=== PATIENT | female | born 2000 | race Caucasian/White ===

== ENCOUNTER 2024-07-22 07:32 | Inpatient (IN) ==
[2024-07-22] MEDS ORDERED: LIDOCAINE 1% LOCAL 20 ML VIAL INFIL PRN (07:42)
[2024-07-22] MEDS ORDERED: Patient's HEIGHT &/or WEIGHT Needed SCH (08:00)
[2024-07-22] MEDS: LACTATED RINGER'S 1,000 ML IV PRN (08:07)
[2024-07-22 08:19] LABS: Hematocrit (blood only) 33.2 % (37.0-47.0); Hemoglobin 11.5 g/dl (12.0-16.0); Mean Corpuscular Hemoglobin 30.4 pg (25.0-34.0); Mean Corpuscular Hgb Conc 34.6 g/dL (32.0-36.0); Mean Corpuscular Volume 87.8 fL (80.0-100.0); Mean Platelet Volume 10.9 fL (9.4-12.4); Platelet Count 204 K/uL (130-400); RDW Coefficient of Variation 12.8 % (11.5-14.5); RDW Standard Deviation 41.1 fL (36.4-46.3); Red Blood Count 3.78 M/uL (4.20-5.40); White Blood Count 11.44 K/ul (4.8-10.8)
[2024-07-22] MEDS ORDERED: INFLUENZA VACC TS2024-25(6m+)/PF (IIV3) 0.5mL Syr IM ONE (08:43)
[2024-07-22] MEDS: OXYTOCIN 30 UNITS/NSS 30 UNITS/500 ML BAG IV PRN ×2 (09:09→22:45)
--- NOTE | 2024-07-22 09:32 | History & Physical Report ---
Date of Service July 22, 2024 Assessment & Plan (1) Encounter for elective induction of labor: (2) 39 weeks gestation of : Plan admit, iv, labs. fhts categ 1. arom done, start pitocin. epidural when desires. Admission and Anticipated Discharge Date Admission Date: July 22, 2024 History of Present Illness Chief Complaint: planned induction Primary Care Provider: PADMAJA Villareal 24yo at 39+wks ega for planned elective induction. Patient with anxiety and feels would benefit from induction and agreed to such today. No rom, vb. +FM. No ctx. PNC c/b 1. anxiety, on zoloft PNL rhpos, ri, gbs neg OBH: tab x1 GYNH: nl paps, no stds Allergies Allergy/AdvReac Type Severity Reaction Status Date / Time No Known Allergies Allergy Verified 07/22/24 07:47 Home Medications Medication Instructions Recorded Confirmed Type PNV no.[id number] PO 12/30/23 07/21/24 History [ Gummies] sertraline 50 mg tablet 50 mg PO DAILY 02/13/24 07/21/24 History Patient History Medical History (Updated 07/22/24 @ 09:31 by Maru Simpson MD, FACOG) Status post elective Psoriasis Depression Varicella vaccination Surgical History S/P dilatation and curettage S/P wisdom tooth extraction Family History Grandmother (Paternal) Diabetes Denies family history of Ovarian cancer Breast cancer Colorectal cancer Social History Smoking Status: Former smoker Do You Dip or Chew Tobacco: No; Hx Alcohol Use: No Hx Substance Use: No Preferred Language: [place] Citizen Last Trimmer Required: No Beliefs That Will Affect Care: None marital status: Single marital status details: Atif Fischer (26) [phone] Current Living Situation: Significant Other Current Living Situation Comment: lives with fob, dogs, cats-fob changing litter current occupational status: employed current occupation: [employer] Assistive Devices: Glasses Review of Systems as per Subjective / HPI Physical Exam Constitutional: WD/WN, vitals as above Respiratory: normal respiratory effort, lungs clear to auscultation Cardiovascular: Rate/Rhythm: regular rate and regular rhythm Gastrointestinal (Abdomen): soft gravid nt efw 7-8# Musculoskeletal: tr edema nontender calves Neurologic: grossly normal Psychiatric: A+Ox3, euthymic affect Genitourinary: Manual OB Exam: + cervical dilation 2 cm, + cervical effacement 50%, + station -2 and + amniotic fluid (arom) clear OB Exam Monitor Tracing: + external FHT monitor used, + external uterine monitor used (irregular), + category I and + normal FHT variability Results & Data Vital Signs (Past 12 Hours) Vital Signs Temp Pulse Resp BP 07/22/24 08:43 98.2 F 16 07/22/24 07:40 98 H 127/76 Coding Level of Care Code None Diagnoses Encounter for elective induction of labor Z34.90 39 weeks gestation of Z3A.39
--- NOTE | 2024-07-22 15:54 | Labor Progress Brief Note ---
Date of Service July 22, 2024 Subjective feeling pain with ctx. Assessment & Plan (1) Encounter for elective induction of labor: (2) 39 weeks gestation of : Plan good progress in labor. desires epidural. fhts categ 1. Admission and Anticipated Discharge Date Admission Date: July 22, 2024 Physical Exam Constitutional: WD/WN, vitals as above Genitourinary: Manual OB Exam: + cervical dilation 5 cm, + cervical effacement 90% and + station 0 OB Exam Monitor Tracing: + external FHT monitor used, + external uterine monitor used (q2 on pit @12), + category I and + normal FHT variability Results & Data Vital Signs (Past 12 Hours) Vital Signs Temp Pulse Resp BP 07/22/24 14:55 82 07/22/24 14:55 126/80 07/22/24 14:54 18 07/22/24 14:54 99.0 F 18 07/22/24 13:50 16 07/22/24 13:50 16 07/22/24 13:31 98.2 F 07/22/24 13:31 98.2 F 07/22/24 13:31 85 07/22/24 13:31 133/84 07/22/24 12:50 16 07/22/24 12:50 16 07/22/24 12:20 18 07/22/24 12:20 18 07/22/24 11:50 16 07/22/24 11:50 16 07/22/24 11:19 73 07/22/24 11:19 120/58 L 07/22/24 10:46 73 07/22/24 10:46 113/59 L 07/22/24 08:43 98.2 F 16 07/22/24 07:40 98 H 127/76 Coding Level of Care Code None Diagnoses Encounter for elective induction of labor Z34.90 39 weeks gestation of Z3A.39
--- NOTE | 2024-07-22 16:10 | Anesthesiology Consultation ---
Date of Service July 22, 2024 Assessment & Plan (1) Encounter for pre-operative examination: Chart Review Chart Review: Acceptable Risk for Labor Epidural History Height/Weight Height: 5 ft 2 in Weight: 78.834 kg Allergies Allergy/AdvReac Type Severity Reaction Status Date / Time No Known Allergies Allergy Verified 07/22/24 07:47 Medications Home Medications Medication Instructions Recorded Confirmed Last Taken PNV no.[id number] PO 12/30/23 07/21/24 Unknown [ Gummies] sertraline 50 mg tablet 50 mg PO DAILY 02/13/24 07/21/24 Unknown Active Medications Generic Name Dose Route Start Last Admin Trade Name Freq PRN Reason Stop Dose Admin Oxytocin 30 units in 500 mls @ 4 mls/hr 07/22/24 07:42 07/22/24 09:56 Pitocin 30 Units/Nss IV 07/24/24 07:41 0.24 units/hr .Q24H PRN 4 mls/hr Labor Induction/Augmentation Titration Protocol 0.24 UNITS/HR Lactated Ringer's 1,000 mls @ 125 mls/hr 07/22/24 08:00 07/22/24 08:07 Lr IV 07/24/24 07:59 125 mls/hr .Q8H PRN Administration L&D Protocol Protocol Past Medical History Medical History Status post elective Psoriasis Depression Varicella vaccination Past Family History Family History Grandmother (Paternal) Diabetes Denies family history of Ovarian cancer Breast cancer Colorectal cancer Past Surgical History Surgical History S/P dilatation and curettage S/P wisdom tooth extraction Social History Smoking Status: Former smoker Do You Dip or Chew Tobacco: No Hx Alcohol Use: No Hx Substance Use: No substance use type: does not use Physical Exam Vital Signs Last Vital Signs Temp 37.2 C 07/22/24 14:54 Pulse 80 07/22/24 16:03 Resp 18 07/22/24 14:54 BP 126/80 07/22/24 14:55 Pulse Ox 99 07/22/24 16:03 Testing Laboratory Results 07/22/24 07:49
[2024-07-22] MEDS: BUPIVACAINE 0.25% PF 30 ML VIAL ONE (16:24)
[2024-07-22] MEDS: fentaNYL citrate PF 100 MCG/2 ML VIAL ONE (16:24)
[2024-07-22] MEDS: fentANYL 2 MCG/ML BUPIVacaine 0.125%-NSS 100ML BAG ONE (16:25)
[2024-07-22] MEDS ORDERED: LIDOCAINE 2% MPF LOCAL 5 ML VIAL EPI PRN (16:33)
[2024-07-22] MEDS ORDERED: BUPIVACAINE 0.25% PF 30 ML VIAL EPI PRN (16:33)
[2024-07-22] MEDS ORDERED: NALOXONE HCL 1 MG in SODIUM CHLORIDE 0.9% 1,000 ML IV PRN (16:33)
[2024-07-22] MEDS ORDERED: fentaNYL citrate PF 100 MCG/2 ML VIAL EPI PRN (16:33)
[2024-07-22] MEDS ORDERED: ROPIVACAINE 0.5% PF 5 MG/ML 20 ML VIAL EPI PRN (16:33)
[2024-07-22] MEDS ORDERED: ONDANSETRON INJ 2 MG/ML 2 ML VIAL IV PRN (16:33)
[2024-07-22] MEDS ORDERED: SODIUM CHLORIDE 0.9% PF INJ 10 ML VIAL EPI PRN (16:33)
[2024-07-22] MEDS ORDERED: NALOXONE HCL 0.4 MG/1 ML VIAL/CARP IV PRN (16:33)
[2024-07-22] MEDS ORDERED: fentANYL 2 MCG/ML BUPIVacaine 0.125%-NSS 100ML BAG EPI PRN (16:33)
[2024-07-22] MEDS ORDERED: ePHEDrine sulfate 50 MG/ML AMP IV PRN (16:33)
[2024-07-22] MEDS: LIDOCAINE 2%/EPINEPHRINE 1:200,000 20 ML PF ONE (17:17)
[2024-07-22] MEDS: BUPIVACAINE 0.25% PF 30 ML VIAL EPI STA (17:18)
[2024-07-22] MEDS: SODIUM CHLORIDE 0.9% PF INJ 10 ML VIAL ONE (17:18)
[2024-07-22] MEDS: ePHEDrine sulfate 50 MG/ML AMP ONE (17:25)
[2024-07-22] MEDS: LIDOCAINE 2%/EPINEPHRINE 1:200,000 20 ML PF EPI STA (17:26)
[2024-07-22] MEDS: SODIUM CHLORIDE 0.9% PF INJ 10 ML VIAL EPI STA (17:26)
[2024-07-22] MEDS: fentaNYL citrate PF 100 MCG/2 ML VIAL EPI STA (17:26)
--- NOTE | 2024-07-22 22:50 | Delivery Summary ---
Vaginal Delivery Summary Date of Service July 22, 2024 Vaginal Delivery Summary The patient dilated to complete and pushed to deliver a viable female Apgars 7 and 9 via over intact perineum. Moderate shoulder dystocia encountered relieved by Fern maneuvers, suprapubic pressure, gentle downward traction and effective maternal expulsive efforts. Mouth and nose bulb suctioned at perineum. Shoulders and body delivered with ease. Infant was vigorous and crying at . Cord clamped at 30 seconds of life and to maternal abdomen where the cord was then doubly clamped and cut. Placenta delivered spontaneously and intact, three-vessel cord. Hemostasis achieved with dilute pitocin and uterine massage and drainage of the bladder for approximately 400 cc under sterile conditions. Cervix and sulci intact. Small bilateral upper labial separations are hemostatic and not repaired. QBL 34 cc. Mother and baby stable in recovery. [facility] Vaginal Delivery Charge Delivery Type Details:
[2024-07-23] MEDS ORDERED: oxyCODONE/ACETAMINOPHEN 5mg/325mg TAB PO PRN (00:11)
[2024-07-23] MEDS ORDERED: HYDROCORTISONE ACETATE 25 MG SUPP PR PRN (00:11)
[2024-07-23] MEDS ORDERED: OXYTOCIN 30 UNITS/NSS 30 UNITS/500 ML BAG IV PRN (00:11)
[2024-07-23] MEDS ORDERED: BENZOCAINE 20% SPRY 85 APPLN/85 GM CAN EXT PRN (00:11)
[2024-07-23] MEDS: DIPHTHER/TETAN/PERTUS Vaccine (Tdap, Adol/Adult) 0.5mL IM ONE (01:53)
[2024-07-23] MEDS: ACETAMINOPHEN 325 MG TAB PO PRN (05:45)
--- NOTE | 2024-07-23 07:35 | Obstetrical Progress Note ---
Date of Service July 23, 2024 Assessment & Plan (1) Encounter for assessment: Plan: Patient is PPD 1 s/p and doing well - Eating well, voiding well, ambulating well - vitals reviewed and within normal limits - pain well controlled with analgesics - OOB, ambulation, diet progression as tolerated - Blood type: A+, GBS neg, rubella immune - Plan to discharge tonight - After discharge, 6 week follow up with OB Admission and Anticipated Discharge Date Admission Date: July 22, 2024 Supervising Physician Co-Signing Physician Notes Resident Physician Supervision Note: I was present with Dr. Ponce during the history and exam. I discussed the case with the resident and agree with the findings and plan as documented in the note. Any exceptions or clarifications are listed here: pt doing well, eating, voiding, ambulating, nursing. no bleeding issues. no pain issues. abd soft ff 2 down nt, nt calves. ppd#1 s/p , wants to go home even if goes at midnight. breast, rhpos, ri. instructions reviewed. f/u 6wks pp check. Documented By: Maru Simpson MD, FACOG Subjective 24 yo post- day 1 s/p Ambulation: ambulating normally Voiding: no voiding problems Passing Gas:: Yes Diet Tolerance:: regular diet Lochia:: Small Feeding Type:: bottle feeding Current Pain Level:2/10 - 5/10 on ambulation Resting comfortably this AM in NAD. Denies MORRELL, CP, SOB, N/V/D, LE pain/swelling. Physical Exam Physical Exam: General: patient resting comfortably, NAD, non-toxic in appearance, answers questions appropriately. Skin: warm, dry, intact HEENT: NC/AT, anicteric sclera, conjunctiva without injection, moist mucus membranes. Heart: +S1/S2, regular, no m/r/g Lungs: equal air entry bilaterally, no rales/rhonchi/wheezes Abd: +BS, soft, NT/ND, uterine fundus firm at umbilicus Ext: warm, no clubbing/cyanosis or edema, Hung's neg. Neuro: nonfocal, speech intact, no facial droop, moving all extremities. Results & Data Vital Signs (Past 12 Hours) Vital Signs Temp Pulse Pulse Resp BP BP Pulse Ox 07/23/24 05:30 36.6 C 76 18 115/72 97 07/23/24 01:20 36.9 C 77 18 124/69 96 07/23/24 01:10 36.7 C 07/23/24 01:03 74 98 07/23/24 00:58 74 97 07/23/24 00:53 83 98 07/23/24 00:48 78 96 07/23/24 00:43 74 97 07/23/24 00:38 72 97 07/23/24 00:33 77 97 07/23/24 00:28 75 97 07/23/24 00:23 81 98 07/23/24 00:18 84 97 07/23/24 00:13 76 97 07/23/24 00:08 67 98 07/23/24 00:03 65 98 07/22/24 23:58 98 07/22/24 23:58 71 07/22/24 23:53 97 07/22/24 23:53 78 07/22/24 23:48 97 07/22/24 23:48 77 07/22/24 23:43 98 07/22/24 23:43 79 07/22/24 23:38 96 07/22/24 23:38 79 07/22/24 23:33 97 07/22/24 23:33 82 07/22/24 23:28 98 07/22/24 23:28 79 07/22/24 23:23 98 07/22/24 23:23 80 07/22/24 23:18 97 07/22/24 23:18 90 07/22/24 23:13 98 07/22/24 23:13 81 07/22/24 23:08 97 07/22/24 23:08 75 07/22/24 23:03 97 07/22/24 23:03 75 07/22/24 22:58 95 07/22/24 22:58 81 07/22/24 22:56 75 07/22/24 22:56 125/59 L 07/22/24 22:53 98 07/22/24 22:53 86 07/22/24 22:50 93 07/22/24 22:50 85 07/22/24 22:48 99 07/22/24 22:48 82 07/22/24 22:43 99 07/22/24 22:43 79 10/09/24 22:38 99 07/22/24 22:38 84 07/22/24 22:36 93 07/22/24 22:36 110 H 07/22/24 22:33 99 07/22/24 22:33 72 07/22/24 22:28 99 07/22/24 22:28 74 07/22/24 22:25 80 07/22/24 22:25 116/56 L 07/22/24 22:23 99 07/22/24 22:23 78 07/22/24 22:21 92 07/22/24 22:21 102 H 07/22/24 22:18 100 07/22/24 22:18 101 H 07/22/24 22:13 99 07/22/24 22:13 84 07/22/24 22:08 100 07/22/24 22:08 83 07/22/24 22:03 98 07/22/24 22:03 83 07/22/24 21:58 97 07/22/24 21:58 82 07/22/24 21:54 77 07/22/24 21:54 133/65 07/22/24 21:53 98 07/22/24 21:53 80 07/22/24 21:48 98 07/22/24 21:48 79 07/22/24 21:45 36.8 C 07/22/24 21:43 99 07/22/24 21:43 78 07/22/24 21:38 97 07/22/24 21:38 75 07/22/24 21:33 98 07/22/24 21:33 72 07/22/24 21:28 99 07/22/24 21:28 72 07/22/24 21:25 93 H 07/22/24 21:25 123/60 07/22/24 21:23 99 07/22/24 21:23 81 07/22/24 21:18 99 07/22/24 21:18 70 07/22/24 21:13 98 07/22/24 21:13 76 07/22/24 21:08 99 07/22/24 21:08 73 07/22/24 21:03 99 07/22/24 21:03 75 07/22/24 20:58 99 07/22/24 20:58 77 07/22/24 20:55 76 10/09/24 20:55 114/68 07/22/24 20:53 99 07/22/24 20:53 77 07/22/24 20:48 98 07/22/24 20:48 79 07/22/24 20:43 99 07/22/24 20:43 76 07/22/24 20:38 99 07/22/24 20:38 72 07/22/24 20:33 99 07/22/24 20:33 77 07/22/24 20:28 99 07/22/24 20:28 72 07/22/24 20:24 74 07/22/24 20:24 115/66 07/22/24 20:23 99 07/22/24 20:23 77 07/22/24 20:18 99 07/22/24 20:18 76 07/22/24 20:13 99 07/22/24 20:13 74 07/22/24 20:08 98 07/22/24 20:08 76 07/22/24 20:03 98 07/22/24 20:03 73 07/22/24 19:58 99 07/22/24 19:58 71 07/22/24 19:56 72 07/22/24 19:56 110/61 07/22/24 19:53 98 07/22/24 19:53 72 07/22/24 19:48 98 07/22/24 19:48 77 07/22/24 19:43 97 07/22/24 19:43 82 07/22/24 19:38 98 07/22/24 19:38 84 O2 Del Method 07/23/24 05:30 Room Air 07/23/24 01:20 Room Air 07/23/24 01:10 07/23/24 01:03 07/23/24 00:58 07/23/24 00:53 07/23/24 00:48 07/23/24 00:43 07/23/24 00:38 07/23/24 00:33 07/23/24 00:28 07/23/24 00:23 07/23/24 00:18 07/23/24 00:13 07/23/24 00:08 07/23/24 00:03 07/22/24 23:58 07/22/24 23:58 07/22/24 23:53 07/22/24 23:53 07/22/24 23:48 07/22/24 23:48 07/22/24 23:43 07/22/24 23:43 07/22/24 23:38 07/22/24 23:38 07/22/24 23:33 07/22/24 23:33 07/22/24 23:28 07/22/24 23:28 07/22/24 23:23 07/22/24 23:23 07/22/24 23:18 07/22/24 23:18 07/22/24 23:13 07/22/24 23:13 07/22/24 23:08 07/22/24 23:08 07/22/24 23:03 07/22/24 23:03 07/22/24 22:58 07/22/24 22:58 07/22/24 22:56 07/22/24 22:56 07/22/24 22:53 07/22/24 22:53 07/22/24 22:50 07/22/24 22:50 07/22/24 22:48 07/22/24 22:48 07/22/24 22:43 07/22/24 22:43 07/22/24 22:38 07/22/24 22:38 07/22/24 22:36 07/22/24 22:36 07/22/24 22:33 07/22/24 22:33 07/22/24 22:28 07/22/24 22:28 07/22/24 22:25 07/22/24 22:25 07/22/24 22:23 07/22/24 22:23 07/22/24 22:21 07/22/24 22:21 07/22/24 22:18 07/22/24 22:18 07/22/24 22:13 07/22/24 22:13 07/22/24 22:08 07/22/24 22:08 07/22/24 22:03 07/22/24 22:03 07/22/24 21:58 07/22/24 21:58 07/22/24 21:54 07/22/24 21:54 07/22/24 21:53 07/22/24 21:53 07/22/24 21:48 07/22/24 21:48 07/22/24 21:45 07/22/24 21:43 07/22/24 21:43 07/22/24 21:38 07/22/24 21:38 07/22/24 21:33 07/22/24 21:33 07/22/24 21:28 07/22/24 21:28 07/22/24 21:25 07/22/24 21:25 07/22/24 21:23 07/22/24 21:23 07/22/24 21:18 07/22/24 21:18 07/22/24 21:13 07/22/24 21:13 07/22/24 21:08 07/22/24 21:08 07/22/24 21:03 07/22/24 21:03 07/22/24 20:58 07/22/24 20:58 07/22/24 20:55 07/22/24 20:55 07/22/24 20:53 07/22/24 20:53 07/22/24 20:48 07/22/24 20:48 07/22/24 20:43 07/22/24 20:43 07/22/24 20:38 07/22/24 20:38 07/22/24 20:33 07/22/24 20:33 07/22/24 20:28 07/22/24 20:28 07/22/24 20:24 07/22/24 20:24 07/22/24 20:23 07/22/24 20:23 07/22/24 20:18 07/22/24 20:18 07/22/24 20:13 07/22/24 20:13 07/22/24 20:08 07/22/24 20:08 07/22/24 20:03 07/22/24 20:03 07/22/24 19:58 07/22/24 19:58 07/22/24 19:56 07/22/24 19:56 07/22/24 19:53 07/22/24 19:53 07/22/24 19:48 07/22/24 19:48 07/22/24 19:43 07/22/24 19:43 07/22/24 19:38 07/22/24 19:38 Resident Activity Tracking Resident Involvement: Resident Care Provided Care Provided: OB Delivery (1) Encounter for assessment visit type: exam and care immediately after delivery Qualified Code(s): Z39.0 - Encounter for care and examination of mother immediately after delivery
--- NOTE | 2024-07-23 08:26 | Anesthesia Procedure Note ---
Date of Service July 23, 2024 Anesthesia Post Epidural Note Vital Signs Vital Signs: Temp Pulse Resp BP Pulse Ox O2 Del Method 36.6 C 76 18 115/72 97 Room Air 07/23/24 05:30 07/23/24 05:30 07/23/24 05:30 07/23/24 05:30 07/23/24 05:30 07/23/24 05:30 Pain Intensity Back: Pain Intensity: 3 Notes Mental Status: alert / awake / arousable and participated in evaluation Nausea / Vomiting: adequately controlled Pain: adequately controlled Airway Patency, RR, SpO2: stable & adequate BP & HR: stable & adequate Hydration State: stable & adequate Neuraxial Anesthesia: was administered and sensory block is resolving Anesthetic Complications: no major complications apparent Epidural: Removed without complications and With tip intact
[2024-07-23] MEDS: IBUPROFEN 600 MG TAB PO PRN (08:38)
[2024-07-23] MEDS: PRENATAL VITAMIN 1 TAB PO SCH (08:39)
[2024-07-23] MEDS: DOCUSATE SODIUM 100 MG CAP PO SCH (08:39)
[2024-07-23] MEDS ORDERED: SERTRALINE HCL 50 MG TABLET PO SCH (09:00)
[2024-07-23] MEDS: INFLUENZA VACC TS2024-25(6m+)/PF (IIV3) 0.5mL Syr IM ONE (11:26)
[2024-07-23] MEDS: bisacodyL 5 MG TABEC PO SCH (20:37)
--- NOTE | 2024-07-24 07:10 | Obstetrical Progress Note ---
Date of Service July 24, 2024 Assessment & Plan (1) Encounter for assessment: Plan: Patient is PPD 2 s/p and doing well - Eating well, voiding well, ambulating well - vitals reviewed and within normal limits - pain well controlled with analgesics - OOB, ambulation, diet progression as tolerated - Blood type: A+, GBS neg, rubella immune - Plan to discharge tonight - After discharge, 6 week follow up with OB Admission and Anticipated Discharge Date Admission Date: July 22, 2024 Supervising Physician Co-Signing Physician Notes Resident Physician Supervision Note: I interviewed and examined the patient. Discussed with Dr. Ponce and agree with findings and plan as documented in the note. Any exceptions or clarifications are listed here: Doing well. Plan d/c today. Instructions reviewed. Documented By: Ca Nolasco MD, FACOG Subjective 24 yo post- day 2 s/p Ambulation: ambulating normally Voiding: no voiding problems Passing Gas:: Yes Diet Tolerance:: regular diet Lochia:: Small Feeding Type:: bottle feeding Current Pain Level:0/10 Resting comfortably this AM in NAD. Denies MORRELL, CP, SOB, N/V/D, LE pain/swelling. Physical Exam Physical Exam: General: patient resting comfortably, NAD, non-toxic in appearance, answers questions appropriately. Skin: warm, dry, intact HEENT: NC/AT, anicteric sclera, conjunctiva without injection, moist mucus membranes. Heart: +S1/S2, regular, no m/r/g Lungs: equal air entry bilaterally, no rales/rhonchi/wheezes Abd: +BS, soft, NT/ND, uterine fundus firm at umbilicus Ext: warm, no clubbing/cyanosis or edema, Hung's neg. Neuro: nonfocal, speech intact, no facial droop, moving all extremities. Results & Data Vital Signs (Past 12 Hours) Vital Signs Temp Pulse Resp BP Pulse Ox O2 Del Method 07/23/24 22:48 36.9 C 73 18 119/74 96 Room Air 07/23/24 19:10 36.7 C 77 18 125/79 99 Room Air Resident Activity Tracking Resident Involvement: Resident Care Provided Care Provided: OB Delivery (1) Encounter for assessment visit type: exam and care immediately after delivery Qualified Code(s): Z39.0 - Encounter for care and examination of mother immediately after delivery
[2024-07-24 08:43] VITALS: BP 111/70; PULSE 77; RESP 20; TEMP 97.9; O2SAT 98
== END 2024-07-24 10:10 | disposition home or self-care (01) | DRG 807 ==
LOC: 4S1 07:32 → 4E2 07-23 01:29
DX: Z37.0 Single live birth; F41.9 Anxiety disorder, unspecified; O66.0 Obstructed labor due to shoulder dystocia; Z3A.39 39 weeks gestation of pregnancy; O99.344 Other mental disorders complicating childbirth